=== PATIENT | male | born 1965 | race Hispanic/Latino ===

== ENCOUNTER → 2022-05-09 | Day surgery (SDC) | payer BC ==
[2022-05-07 16:13] LABS: Absolute Lymphocytes (CBC) 1.8 K/uL (0.7-4.9); Hematocrit 46.3 % (39.6-49.0); Lymphocytes % 29.4 % (15.3-44.8); MCV 88.4 fL (80-100); MPV 8.3 fL (7.6-11.3); RBC Red Blood Cell Count 5.24 M/uL (4.33-5.43)
[~2022-05-09] MED LIST: BUPIVACAINE 0.25% PF 10 ML VIAL IJ ONE; BUPIVACAINE 0.25% PF 30 ML VIAL ONE; CEFOXITIN SODIUM 2 GM/VIAL ONE; FENTANYL CITR 100 MCG/2 ML ONE; GLYCOPYRROLATE 0.2 MG/ML SYR ONE; HYDROCODONE/APAP 7.5/325 MG TAB ONE; KETOROLAC 30 MG/ML INJ ONE; LIDOCAINE 1% MPF 2 ML AMPULE ONE; MIDAZOLAM HCL 2 MG/2 ML INJ ONE; NA CHLORIDE 0.9% 1,000 ML ONE; NEOSTIGMINE 1 MG/ML -10 ML VIAL ONE; NS 0.9% VIAL 10 ML ONE; ONDANSETRON 4 MG/2 ML VIAL ONE; ROCURONIUM 50 MG/5 ML VIAL IV ONE; dexAMETHasone 10 MG/ML VIAL ONE; propofoL 200 MG/20 ML VIAL IV ONE
--- NOTE | 2022-05-09 09:04 | P.OP ---
Preoperative diagnosis: Gallbladder Polyp / Biliary Colic Postoperative diagnosis: Gallbladder Polyp / Biliary Colic Primary procedure: Laparoscopic cholecystectomy with ICG Cholangiography Anesthesia: GETA + Local Estimated blood loss: <5cc Specimen: Gallbladder Findings: short cystic duct Complications: None Transferred to: Recovery Room Condition: Good
[2022-05-09] MEDS: HYDROMORPHONE HCL 1 MG/ML INJ ONE ×2 (09:10→09:25)
--- NOTE | 2022-05-09 09:34 | OP ---
Date of Procedure: 05/09/2022 Surgeon: Jean Soto MD, Preoperative Diagnosis: Gallbladder polyp/biliary colic. Postoperative Diagnosis: Gallbladder polyp/biliary colic. Procedure Performed: Laparoscopic cholecystectomy with ICG cholangiography. Anesthesia: General endotracheal plus local with 0.25% Marcaine. Estimated Blood Loss: Less than 5 cc. Specimen: Gallbladder. Findings: Short cystic duct. Complications: None. Disposition: The patient was transferred to recovery room in good condition. Procedure In Detail: After informed consent was obtained, patient was brought to the operating room and prepped and draped in the usual sterile fashion. After adequate anesthesia was achieved, a supra umbilical area was anesthetized with 0.25% Marcaine and sharply incised. A 5 mm 0 degree optical tro car was introduced in the abdomen without evidence of any complication. Insufflation was obtained at 15 mmHg at this time. There was no injury to vital structures. Additional trocar was placed in the epigastrium and this was similarly anesthetized and sharply incised. A 5 mm trocar was placed under direct vision without evidence of any complication. The umbilical trocar site was then upsized to 1 2 mm under direct visualization without evidence of any complication. Additional trocar was placed i n the right upper quadrant. This was similarly anesthetized and sharply incised. A 5 mm trocar was placed under direct visualization without any complication. The patient was positioned head up, righ t-side up position. Ratcheted grasper was used to grasp the patient's gallbladder, placed towards th e patient's right shoulder. Dissection continued down near the James's pouch of the gallbladder t o dissect the cystic duct and cystic artery. At this point, the 2 structures were identified at this point. The critical view of safety was obtained at this point. Indocyanine green cholangiography w as performed at this point to confirm the anatomy. A short cystic duct was appreciated, but with steven quate length and without concern of narrowing the common duct. At this point, the 2 structures were inspected one last time. Skeletonization of the structures was complete at this point. Double titan ium clips, double on the proximal side and singly on the distal side of both cystic duct and cystic a rtery. These structures were then ligated at this point. The gallbladder was then removed from the hepatic fossa without incident or complication. Minimal fulguration was required to the hepatic bed, near the distal aspect of the hepatic bed. The gallbladder was then placed in an Endo Catch bag, re moved through the umbilical trocar, and sent off for pathologic examination. The area was then copio usly irrigated and the abdomen suctioned out until completely dry and clear. No additional hemostati c measures required. Clips were found to be in good anatomic position without any leakage of blood o r bile at the end of procedure. As such, patient was positioned back in neutral position. The umbil ical trocar site was closed using a Kobe-Erica suture passer with 0 Vicryl in interrupted fashio n with good approximation of tissues. The abdomen was completely desufflated under direct vision wit hout evidence of any complication. All remaining trocars were removed. All skin incisions were copi ously irrigated and closed with a 4-0 Monocryl in a running fashion. Dermabond was placed over top. The patient tolerated the procedure without evidence of any complication and was transferred to PACU in good condition. All counts were correct at the end of the case. NICHO/MAIKEL Voice ID: [id number] Report ID: [id number]
[2022-05-09 12:08] VITALS: BP 106/63; TEMP 96.6; O2SAT 100
--- NOTE | 2022-05-09 13:42 | EKG ---
Test Date: 2022-05-07 Test Time: 15:53:29 Device Test Engineer: AJAY MEASUREMENT RESULTS: Intervals: Rate: 60 NV: 152 QRSD: 92 QT: 386 QTc: 386 Hanna: P: 34 NV: 152 QRS: 12 T: 24 INTERPRETIVE STATEMENTS: Normal sinus rhythm Normal ECG No previous ECG available for comparison Electronically Signed On 05-09-22 13:38:56 CDT by [place]
== END | disposition home or self-care (01) ==
LOC: OR 06:24
PROVIDERS: ATTEND Surgery
PROC: BF03YZZ Plain Radiography of Gallbladder and Bile Ducts using Other Contrast (ICD-10-PCS; 2022-05-09)
PROC: 0FT44ZZ Resection of Gallbladder, Percutaneous Endoscopic Approach (ICD-10-PCS; 2022-05-09)
PROC: 0FT44ZZ Resection of Gallbladder, Percutaneous Endoscopic Approach (ICD-10-PCS; principal; 2022-05-09 08:00)
DX: K80.10 Calculus of gallbladder with chronic cholecystitis without obstruction (principal); I10 Essential (primary) hypertension
CPT/HCPCS: 93005; 85025; 80048; 36415; 82947 ×2; 88304; 47563; J2704; J2710; J2250; J3010 ×2; A4216; J1170; J7030; J0694; J2405; C9776; J1100